=== PATIENT | female | born 1970 | race Caucasian/White ===

== ENCOUNTER 2017-07-17 10:56 | Emergency (ER) | payer BC ==
--- NOTE | 2017-07-17 11:35 | EDM.PDOC ---
ED HPI GENERAL MEDICAL PROBLEM - General Chief Complaint: Bite:Animal, Insect Stated Complaint: CHEST PAIN Time Seen by Provider: 07/17/17 11:10 Source of Information: Reports: Patient History Limitations: Reports: No Limitations - History of Present Illness INITIAL COMMENTS - FREE TEXT/NARRATIVE: Becky comes in with 2 concerns. She has a nonhealing wound of the L thumb since June 2017 when accidentally lacerated while feeding a calf. She thought the wound was getting better, but reopened following a blow from a hammer. There is no zafar discharge, some fissured overlying skin, and some discolored tissue that is partially exposed. The lesion is mildly tender to touch. In addition, she is also experiencing some precordial chest pain this am, positional at times , without sweats, palpitations, dizziness, or SOB. She has been assisting with fencing lately, and believes this may have been contributory. An initial 12 lead ekg notes NSR with no defect. - Related Data Allergies Allergy/AdvReac Type Severity Reaction Status Date / Time No Known Allergies Allergy Verified 07/17/17 11:53 Home Meds: Home Meds Sulfamethoxazole/Trimethoprim [Bactrim Ds Tablet] 1 each PO BID #14 tablet 07/17 [Rx] ED ROS GENERAL - Review of Systems Review Of Systems: See Below Constitutional: Reports: No Symptoms HEENT: Reports: No Symptoms Respiratory: Reports: No Symptoms Cardiovascular: Reports: Chest Pain Endocrine: Reports: No Symptoms GI/Abdominal: Reports: No Symptoms : Reports: No Symptoms Musculoskeletal: Reports: Muscle Stiffness (with movement of upper torso) Skin: Reports: Wound (L thumb non healing since June) Neurological: Reports: No Symptoms Psychiatric: Reports: No Symptoms Hematologic/Lymphatic: Reports: No Symptoms Immunologic: Reports: No Symptoms ED EXAM, GENERAL - Physical Exam Exam: See Below Exam Limited By: No Limitations General Appearance: Alert, WD/WN, No Apparent Distress Eye Exam: Bilateral Eye: EOMI, Normal Inspection, PERRL Ears: Normal External Exam Nose: Normal Inspection Throat/Mouth: Normal Inspection, Normal Oropharynx Head: Normocephalic Neck: Normal Inspection, Supple, Non-Tender, Full Range of Motion Respiratory/Chest: No Respiratory Distress, Lungs Clear, Normal Breath Sounds, No Accessory Muscle Use, Other (limited parasternal tenderness T 5,6 L>R) Cardiovascular: Normal Peripheral Pulses, Regular Rate, Rhythm, No Edema, No Gallop, No JVD, No Murmur, No Rub, JVD GI/Abdominal: Normal Bowel Sounds, Soft, Non-Tender, No Organomegaly, No Distention, No Mass Back Exam: Normal Inspection, Full Range of Motion, CVA Tenderness (L) ( equivocable) Extremities: Normal Range of Motion, Other (1.3 cm fissured lesion distal pad L thumb) Neurological: Alert, Oriented, CN II-XII Intact, Normal Cognition, Normal Gait, No Motor/Sensory Deficits Psychiatric: Normal Affect, Normal Mood Skin Exam: Warm, Dry Lymphatic: No Adenopathy Course - Vital Signs Text/Narrative:: Screening labwork, ekg, and chest x ray were normal. A musculoskeltal source is suspected. The L thumb wound was cultured, and she will be started on Bactrim DS pending culture reports. Last Recorded V/S: Last Vital Signs Temp 36.5 C 07/17/17 12:08 Pulse 77 07/17/17 12:08 Resp 19 07/17/17 12:08 BP 124/80 07/17/17 12:08 Pulse Ox 95 07/17/17 12:08 - Orders/Labs/Meds Orders: Active Orders 24 hr Category Date Time Status Chest 2V [CR] Stat Exams 07/17/17 11:50 Taken CULTURE ROUTINE + SMEAR [RM] Stat Lab 07/17/17 11:25 Ordered EKG 12 Lead [EK] Routine Ther 07/17/17 11:25 Ordered Labs: Laboratory Tests 07/17/17 07/17/17 07/17/17 Range/Units 11:40 11:40 11:40 WBC 7.4 (4.5-12.0) X10-3/uL RBC 4.76 (3.23-5.20) x10(6)uL Hgb 14.8 (11.5-15.5) g/dL Hct 43.6 (30.0-51.3) % MCV 91.4 (80-96) fL MCH 31.0 (27.7-33.6) pg MCHC 33.9 (32.2-35.4) g/dL RDW 13.1 (11.5-15.5) % Plt Count 233 (125-369) X10(3)uL MPV 8.4 (7.4-10.4) fL Neut % (Auto) 64.7 (46-82) % Lymph % (Auto) 25.2 (13-37) % [place] % (Auto) 7.7 (4-12) % Eos % (Auto) 2 (1.0-5.0) % Baso % (Auto) 1 (0-2) % Neut # (Auto) 4.8 (1.6-8.3) # Lymph # (Auto) 1.9 (0.6-5.0) # [place] # (Auto) 0.6 (0.0-1.3) # Eos # (Auto) 0.1 (0.0-0.8) # Baso # (Auto) 0.0 (0.0-0.2) # Sodium 141 (135-145) mmol/L Potassium 3.9 (3.5-5.3) mmol/L Chloride 105 (100-110) mmol/L Carbon Dioxide 27 (21-32) mmol/L BUN 17 (7-18) mg/dL Creatinine 0.7 (0.55-1.02) mg/dL Est Cr Clr Drug Dosing 99.15 mL/min Estimated GFR (MDRD) > 60 (>60) BUN/Creatinine Ratio 24.3 H (9-20) Glucose 83 (80-116) mg/dL Calcium 9.3 (8.6-10.2) mg/dL Total Bilirubin 0.6 (0.1-1.3) mg/dL AST 14 (5-25) IU/L ALT 21 (12-36) U/L Alkaline Phosphatase 99 (56-112) IU/L Troponin I < 0.017 L (<0.017-0.056) ng/mL Total Protein 7.1 (6.0-8.0) g/dL Albumin 3.9 (3.5-5.2) g/dL Globulin 3.2 g/dL Albumin/Globulin Ratio 1.2 Departure - Departure Time of Disposition: 12:23 Disposition: Home, Self-Care 01 Condition: Good Clinical Impression: Atypical chest pain, Cellulitis of left thumb - Discharge Information Prescriptions: Sulfamethoxazole/Trimethoprim [Bactrim Ds Tablet] 1 each PO BID #14 tablet Referrals: PCP,Not In Area [Primary Care Provider] - Forms: ED Department Discharge - Problem List & Annotations (1) Atypical chest pain SNOMED Code(s): 763568350 Code(s): R07.89 - OTHER CHEST PAIN Status: Acute Current Visit: Yes Annotation/Comment:: I suggested NSAIDs and rest for current sxs. (2) Cellulitis of left thumb SNOMED Code(s): 04660372 Code(s): L03.012 - CELLULITIS OF LEFT FINGER Status: Acute Current Visit : Yes Annotation/Comment:: I dispensed Bactrim DS bid for a week, WC pending. Surgical debridement may be needed if unimproved. - Problem List Review Problem List Initiated/Reviewed/Updated: Yes - My Orders Last 24 Hours: My Active Orders 07/17/17 11:25 CULTURE ROUTINE + SMEAR [RM] Stat EKG 12 Lead [EK] Routine 07/17/17 11:50 Chest 2V [CR] Stat - Assessment/Plan Last 24 Hours: My Active Orders 07/17/17 11:25 CULTURE ROUTINE + SMEAR [RM] Stat EKG 12 Lead [EK] Routine 07/17/17 11:50 Chest 2V [CR] Stat Plan: Follow up with PCP.
--- NOTE | 2017-07-17 14:07 | CR ---
INDICATION: Atypical chest pain. CHEST: PA and lateral views of the chest were obtained 07/17/2017 - no comparisons. The heart and mediastinum were unremarkable. At the lower thoracic spine, there is a mild dextroconvex scoliosis. An active infiltrate or effusion was not identified. Overlying EKG leads are noted. IMPRESSION: 1. No acute process. 2. Mild scoliosis. MTDD
== END 2017-07-17 12:45 | disposition home or self-care (01) ==
LOC: FB.ED 10:56
DX: R07.89 Other chest pain (principal); L03.012 Cellulitis of left finger
CPT/HCPCS: 36415; 71046; 80053; 84484; 85025; 87070; 87077; 87186; 87205; 93005; 99284